=== PATIENT | male | born 1990 | race Hispanic/Latino ===

== ENCOUNTER 2020-06-08 15:27 | Emergency (ER) | payer SELFPAY ==
[2020-06-08] MEDS ORDERED: ONDANSETRON 4 MG/2 ML VIAL ONE (16:06)
[2020-06-08] MEDS ORDERED: TETANUS & DIPHTHERIA TOX,ADULT 0.5 ML VIAL ONE (16:06)
[2020-06-08] MEDS ORDERED: MORPHINE 4 MG/ML SYR ONE ×2 (16:06→17:21)
--- NOTE | 2020-06-08 16:33 | RAD REPORT ---
EXAM DESCRIPTION: RAD - Foot Left 3 View - 06/08/2020 4:17 pm CLINICAL HISTORY: Left Foot pain FINDINGS: No fracture or dislocation is seen. No radiopaque foreign body seen
--- NOTE | 2020-06-08 16:57 | EDPHYS ---
Physician Documentation [facility] Name: David Dyson Age: 29 yrs Sex: Male : 1990 Arrival Date: 06/08/2020 Time: 15:33 Bed 3 Private MD: ED Physician Brie Bowers HPI: 06/08 15:40 This 29 yrs old Male presents to ER via Unassigned with complaints of Stingray pm1 Puncture. 15:40 The patient presents with an injury, pain, a puncture wound, stingray payam. The pm1 complaints affect the left foot. Context[place] ray payam puncture. Onset: The symptoms/episode began/occurred 1 hour(s) ago. Modifying factors: The symptoms are alleviated by nothing, the symptoms are aggravated by nothing. Associated signs and symptoms: Pertinent negatives: calf tenderness, fever, numbness, tingling. Severity of symptoms: in the emergency department the symptoms are unchanged. The patient has not experienced similar symptoms in the past. Historical: - Allergies: 15:41 No Known Allergies; jl7 - Home Meds: 15:41 None [Active]; jl7 - PMHx: 15:41 None; jl7 - PSHx: 15:41 None; jl7 - Immunization history:: Adult Immunizations up to date. - Social history:: Smoking status: Patient denies any tobacco usage or history of. ROS: 15:42 MS/extremity: Positive for puncture, of the dorsum of left foot. pm1 15:42 Constitutional: Negative for fever, chills, and weight loss, Respiratory: Negative for shortness of breath, cough, wheezing, and pleuritic chest pain, Abdomen/GI: Negative for abdominal pain, nausea, vomiting, diarrhea, and constipation, Back: Negative for injury and pain. 15:42 Neuro: Negative for headache, weakness, numbness, tingling, and seizure. 15:42 Skin: Positive for puncture, of the left foot. Exam: 15:42 Constitutional: This is a well developed, well nourished patient who is awake, alert, pm1 and in no acute distress. Head/Face: Normocephalic, atraumatic. 15:42 MS/ Extremity: Pulses equal, no cyanosis. Neurovascular intact. Full, normal range of motion. 15:42 Cardiovascular: Exam negative for acute changes, Rate: normal, Rhythm: regular, Pulses: no pulse deficits are appreciated. 15:42 Respiratory: Exam negative for acute changes, respiratory distress, shortness of breath. 15:42 Skin: Appearance: normal except for affected area, abscess, not appreciated, cellulitis, is not appreciated, injury, puncture(s), that are superficial, of the dorsum of left foot. 15:42 Neuro: Exam negative for acute changes, Orientation: is normal, Mentation: is normal, Motor: is normal, moves all fours. Vital Signs: 15:34 BP 114 / 95; Pulse 103; Resp 13; Temp 98; Pulse Ox 99% ; Pain 9/10; jl7 16:00 BP 130 / 94; Pulse 108; Resp 15 S; Pulse Ox 100% on R/A; jl7 17:30 BP 110 / 73; Pulse 62; Resp 16; Pulse Ox 100% ; jl7 MDM: 15:33 Patient medically screened. pm1 16:53 Data reviewed: vital signs. Data interpreted: Pulse oximetry: on room air is 100 %. pm1 Interpretation: normal. Counseling: I had a detailed discussion with the patient and/or guardian regarding: the historical points, exam findings, and any diagnostic results supporting the discharge/admit diagnosis, radiology results, the need for outpatient follow up, to return to the emergency department if symptoms worsen or persist or if there are any questions or concerns that arise at home. 06/08 15:37 Order name: XRAY Foot LEFT 3 View; Complete Time: 16:47 pm1 06/08 15:37 Order name: Wound Care: Clean left foot then soak in hot water; Complete Time: 15:58 pm1 Administered Medications: 15:59 Drug: Zofran (Ondansetron) 4 mg Route: IVP; Site: left hand; 17:14 Follow up: Response: No adverse reaction 16:00 Drug: Tetanus-Diphtheria Toxoid Adult 0.5 ml {Cleaner [employer] Dyer: [employer]. Exp: jl7 12/05/2022. Lot #: [id number]. } Route: IM; Site: left deltoid; 17:14 Follow up: Response: No adverse reaction 16:01 Drug: morphine 4 mg Route: IVP; Site: left hand; jl7 16:30 Follow up: Response: No adverse reaction; Pain is decreased jl7 17:14 Drug: morphine 4 mg Route: IVP; Site: left hand; jl7 17:57 Follow up: Response: No adverse reaction; Pain is decreased jl7 17:14 Drug: Doxycycline 100 mg Route: PO; jl7 17:57 Follow up: Response: Medication administered at discharge. jl7 Disposition: 06/09 08:34 Co-signature as Attending Physician, Brie Bowers MD. ma2 Disposition: 06/08/20 16:56 Discharged to Home. Impression: Puncture wound without foreign body, left foot. - Condition is Stable. - Discharge Instructions: Puncture Wound. - Prescriptions for Tylenol- Codeine #3 300-30 mg Oral Tablet - take 2 tablets by ORAL route every 6 hours As needed; 20 tablet. Doxycycline Hyclate 100 mg Oral Tablet - take 1 tablet by ORAL route every 12 hours; 20 tablet. - Medication Reconciliation Form, Thank You Letter, Antibiotic Education, Prescription Opioid Use form. - Follow up: Emergency Department; When: As needed; Reason: Worsening of condition. Follow up: Private Physician; When: 2 - 3 days; Reason: Recheck today's complaints, Continuance of care, Re-evaluation by your physician. - Problem is new. - Symptoms have improved. Signatures: Dispatcher [employer] EDGA Neymar Weiner, ZHANE OPEN HEARTH FURNACE OPERATOR pm1 Sky Turner RN RN jl7 Brie Bowers MD MD ma2 Corrections: (The following items were deleted from the chart) 06/08 17:58 16:56 06/08/2020 16:56 Discharged to Home. Impression: Puncture wound without foreign jl7 body, left foot. Condition is Stable. Forms are Medication Reconciliation Form, Thank You Letter, Antibiotic Education, Prescription Opioid Use. Follow up: Emergency Department; When: As needed; Reason: Worsening of condition. Follow up: Private Physician; When: 2 - 3 days; Reason: Recheck today's complaints, Continuance of care, Re-evaluation by your physician. Problem is new. Symptoms have improved. pm1
--- NOTE | 2020-06-08 16:57 | ER ---
Nurse's Notes [facility] Name: David Dyson Age: 29 yrs Sex: Male : 1990 Arrival Date: 06/08/2020 Time: 15:33 Bed 3 Private MD: Diagnosis: Puncture wound without foreign body, left foot Presentation: 06/08 15:34 Chief complaint: EMS states: Stingray puncture to dorsum of left foot, not through and jl7 through, occurred at 1400. Coronavirus screen: Client denies travel out of the [place] in the last 14 days. At this time, the client does not indicate any symptoms associated with coronavirus-19. Ebola Screen: No symptoms or risks identified at this time. Initial Sepsis Screen: Does the patient meet any 2 criteria? No. Patient's initial sepsis screen is negative. Does the patient have a suspected source of infection? No. Patient's initial sepsis screen is negative. Risk Assessment: Do you want to hurt yourself or someone else? Patient reports no desire to harm self or others. Onset of symptoms was June 08, 2020 at 14:00. Care prior to arrival: IV initiated. 20 GA, in the right hand. Transition of care: patient was not received from another setting of care. 15:34 Method Of Arrival: EMS: [facility] 15:34 Acuity: RERE 4 jl7 Triage Assessment: 15:41 General: Appears in no apparent distress. uncomfortable, Behavior is cooperative, jl7 appropriate for age, anxious. Pain: Complains of pain in left foot Pain currently is 9 out of 10 on a pain scale. Neuro: Level of Consciousness is awake, alert, obeys commands, Oriented to person, place, time, situation. Cardiovascular: Patient's skin is warm and dry. Respiratory: Airway is patent Respiratory effort is even, unlabored, Respiratory pattern is regular, symmetrical. Derm: Skin is pink, warm \T\ dry. Musculoskeletal: Swelling present in left foot. Historical: - Allergies: 15:41 No Known Allergies; jl7 - Home Meds: 15:41 None [Active]; jl7 - PMHx: 15:41 None; jl7 - PSHx: 15:41 None; jl7 - Immunization history:: Adult Immunizations up to date. - Social history:: Smoking status: Patient denies any tobacco usage or history of. Screenin:30 Abuse screen: Denies threats or abuse. Denies injuries from another. Nutritional jl7 screening: No deficits noted. Tuberculosis screening: No symptoms or risk factors identified. Fall Risk IV access (20 points). Total Rae Fall Scale indicates No Risk (0-24 pts). Assessment: 15:30 General: See triage assessment. jl7 16:30 Reassessment: Patient appears in no apparent distress at this time. No changes from jl7 previously documented assessment. Patient and/or family updated on plan of care and expected duration. Pain level reassessed. Patient is alert, oriented x 3, equal unlabored respirations, skin warm/dry/pink. Vital Signs: 15:34 BP 114 / 95; Pulse 103; Resp 13; Temp 98; Pulse Ox 99% ; Pain 9/10; jl7 16:00 BP 130 / 94; Pulse 108; Resp 15 S; Pulse Ox 100% on R/A; jl7 17:30 BP 110 / 73; Pulse 62; Resp 16; Pulse Ox 100% ; jl7 ED Course: 15:30 No provider procedures requiring assistance completed. jl7 15:30 Maintain EMS IV. Dressing intact. Good blood return noted. Site clean \T\ dry. Gauge \T\ jl 7 site: 20 left hand. 15:33 Patient arrived in ED. jl7 15:33 Neymar Weiner NP is PHCP. pm1 15:33 Brie Bowers MD is Attending Physician. pm1 15:41 Triage completed. jl7 15:41 Arm band placed on right wrist. jl7 15:41 Wound care: to STING RAY located on dorsum of left foot and left fourth toe was soaked mh5 in SOAKED IN HOT WATER. 15:42 Sky Turner RN is Primary Nurse. jl7 15:45 Patient has correct armband on for positive identification. Placed in gown. Bed in low mh5 position. Call light in reach. Side rails up X 1. Warm blanket given. quality assurance monitor on. Pulse ox on. NIBP on. 16:01 Wound care: HEATED MORE WATER . mh5 16:17 XRAY Foot LEFT 3 View In Process Unspecified. EDMS 17:57 IV discontinued, intact, bleeding controlled, No redness/swelling at site. Pressure jl7 dressing applied. Administered Medications: 15:59 Drug: Zofran (Ondansetron) 4 mg Route: IVP; Site: left hand; jl7 17:14 Follow up: Response: No adverse reaction jl7 16:00 Drug: Tetanus-Diphtheria Toxoid Adult 0.5 ml {Dispatch Supervisor: [employer]. Exp: jl7 12/05/2022. Lot #: [id number]. } Route: IM; Site: left deltoid; 17:14 Follow up: Response: No adverse reaction jl7 16:01 Drug: morphine 4 mg Route: IVP; Site: left hand; jl7 16:30 Follow up: Response: No adverse reaction; Pain is decreased jl7 17:14 Drug: morphine 4 mg Route: IVP; Site: left hand; jl7 17:57 Follow up: Response: No adverse reaction; Pain is decreased jl7 17:14 Drug: Doxycycline 100 mg Route: PO; jl7 17:57 Follow up: Response: Medication administered at discharge. jl7 Outcome: 15:30 Discharged to home ambulatory. jl7 15:30 Condition: stable 15:30 Discharge instructions given to patient, Instructed on discharge instructions, follow up and referral plans. medication usage, Demonstrated understanding of instructions, follow-up care, medications, Prescriptions given X 2. 16:56 Discharge ordered by . pm1 17:58 Patient left the ED. jl7 Signatures: Dispatcher [employer] EDMS Neymar Weiner NP STRETCHING MACHINE OPERATOR pm1 [place] Escalante 5 Sky Turner, RN RN jl7
[2020-06-08] MEDS ORDERED: DOXYCYCLINE 100 MG CAP PO ONE (17:22)
[2020-06-09 14:32] VITALS: TEMP 98
[2020-06-09 14:34] VITALS: O2SAT 100
[2020-06-09 14:35] VITALS: BP 110/73
== END 2020-06-08 17:58 | disposition home or self-care (01) ==
LOC: ER 15:27
DX: S91.332A Puncture wound without foreign body, left foot, initial encounter (principal); W56.82XA Struck by other nonvenomous marine animals, initial encounter; Y92.832 Beach as the place of occurrence of the external cause; Z23 Encounter for immunization
CPT/HCPCS: 90471; 90714; 96374; 96375; 99284; J2405